=== PATIENT | male | born 1955 | race Caucasian/White ===

== ENCOUNTER → 2019-12-19 | Day surgery (SDC) | payer MEDICARE, OTHER ==
[2019-12-15 12:40] LABS: BASOPHILS % 0.5 % (0.0-1.0); EOSINOPHILS # (AUTO) 0.1 (0.0-0.4); EOSINOPHILS % 1.6 % (0.0-6.0); HEMATOCRIT 45.9 % (38.2-49.6); HEMOGLOBIN 15.9 g/dL (14.0-18.0); LYMPHOCYTES # (AUTO) 2.4 (1.0-3.2); LYMPHOCYTES % 32.3 % (18.0-39.1); MEAN CORPUSCULAR HEMOGLOBIN 32.3 pg (28-32); MEAN CORPUSCULAR HGB CONC 34.6 g/dL (31-35); MEAN CORPUSCULAR VOLUME 93.1 fL (81-99); MONOCYTES # (AUTO) 0.9 (0.2-0.8); MONOCYTES % 11.5 % (4.4-11.3); NEUTROPHILS % 53.4 % (38.7-80.0); PLATELET COUNT 175 x10e3/uL (140-360); RED BLOOD COUNT 4.93 x10e6/uL (4.3-5.7); RED CELL DISTRIBUTION WIDTH 13.5 % (11.7-14.4)
[2019-12-15 12:59] LABS: ALANINE AMINOTRANSFERASE 92 IU/L (0-55); ALBUMIN 4.5 g/dL (3.5-5.0); ALBUMIN/GLOBULIN RATIO 1.3 (0.8-2.0); ALKALINE PHOSPHATASE 74 IU/L (40-150); ANION GAP 15.4 mmol/L (8-16); BLOOD UREA NITROGEN 16 mg/dL (7-26); BUN/CREATININE RATIO 15 (6-25); CALCIUM 9.9 mg/dL (8.4-10.2); CARBON DIOXIDE 23 mmol/L (22-29); CHLORIDE 104 mmol/L (98-107); CREATININE, SERUM 1.08 mg/dL (0.72-1.25); EST GLOMERULAR FILTRATION RATE > 60 ML/MIN (60-); GLUCOSE 114 mg/dL (74-118); POTASSIUM 4.4 mmol/L (3.5-5.1); SODIUM 138 mmol/L (136-145)
--- NOTE | 2019-12-15 13:56 | Diagnostic Imaging Report ---
EXAMINATION: CHEST 2 VIEWS INDICATION: Pre-operative COMPARISON: None FINDINGS: LINES/TUBES:None LUNGS:The lungs are well-inflated. No focal consolidation or pulmonary edema. PLEURA:No pleural effusion or pneumothorax. MEDIASTINUM:The cardiomediastinal silhouette appears normal in size and shape. BONES/SOFT TISSUES:No acute osseous injury. ABDOMEN:No free air under the diaphragm. Prior T12 vertebral augmentation. IMPRESSION: No focal pneumonia or pulmonary edema. Signed by: Carrie Massey MD on 12/15/2019 1:53 PM
[~2019-12-19] MED LIST: BUPIVACAINE 0.25% 30ML SDV INJ ONE; CEFAZOLIN SOD 1 GM VIAL ONE; EPHEDRINE SULFATE INJ 50 MG/ML VIAL ONE; FENTANYL CITRATE/PF 100MCG/2 ML INJ ONE; HYDROCODON-ACE1 EAC9 PO; LIDOCAINE 1% W/EPINEPHRINE 20 ML VIAL ONE; LIDOCAINE HCL 2% LOCAL INJ 5 ML SDV VIAL INJ ONE; LISINOPRIL20 MG PO; MIDAZOLAM HCL 2 MG/2 ML VIAL ONE; ONDANSETRON HCL INJ 2MG/ML 2ML 2 MG/ML VIAL ONE; PROPOFOL IV EMULSION 10 MG/ML 20 ML VIAL ONE; SEVOFLURANE INHAL SOLN 250 ML PEN BTL ONE
--- NOTE | 2019-12-19 07:15 | NUR ---
SPIRITUAL CARE - Pre-Surgery Assessment: Pt in bed. Pt's friend at bedside. Pt reported supportive attention from family and friends. Intervention: Back Roller provided pastoral presence, hospitality, and sympathetic listening. Acquainted pt with availability of chicken fancier while hospitalized. Outcome: Pt expressed appreciation for visit. No need for follow up indicated at this time. MANJIT Rudolph Spiritual Care Department O: [phone]
[2019-12-19 10:50] VITALS: BP 118/78
--- NOTE | 2019-12-19 10:53 | Operative Report ---
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 OPERATION PERFORMED: Wide excision of squamous cell cancers of the anterior chest wall and left shoulder x4 with multiple layer closure. ANESTHESIA: General. COMPLICATIONS: None. ESTIMATED BLOOD LOSS: Minimal. DESCRIPTION OF PROCEDURE: With the patient lying in bed in the supine position under good general anesthesia, the anterior chest and left shoulder were prepped with Hibiclens solution and draped in the usual manner. All 4 lesions were infiltrated with 0.25% Marcaine and 1% xylocaine with epinephrine mixed in equal parts. Wide excisions were done to make sure that we included all of the lesions. The largest of which was about 3 cm in size. The smallest of which was about 1 cm in size. All were widely resected down through the subcutaneous tissue down to the fascia, and removed and sent for pathological examination. Hemostasis was ascertained. Flaps were then developed in all directions and the fascia and subcutaneous tissue was approximated with interrupted sutures of 3-0 Vicryl and the skin was closed with interrupted vertical mattress sutures of 3-0 nylon. A dressing was applied. The sponge, lap, and needle count was correct. The patient tolerated the procedure well and returned to the recovery room in stable condition. Alex Liu MD JLR/MODL /[id number]
== END | disposition home or self-care (01) ==
LOC: OR 06:10
PROVIDERS: ATTEND Surgery
DX: D09.8 Carcinoma in situ of other specified sites (principal); C44.519 Basal cell carcinoma of skin of other part of trunk; C49.12 Malignant neoplasm of connective and soft tissue of left upper limb, including shoulder; L57.0 Actinic keratosis; G89.29 Other chronic pain; F17.210 Nicotine dependence, cigarettes, uncomplicated; Z01.810 Encounter for preprocedural cardiovascular examination; Z01.812 Encounter for preprocedural laboratory examination; Z01.818 Encounter for other preprocedural examination; Z11.59 Encounter for screening for other viral diseases
CPT/HCPCS: 21557; 23077; 36415; 71046; 80053; 85025; 88305; 88311; 93005; J0690; J2001; J2250; J2405; J2704; J3010; U0002; 88304

== ENCOUNTER → 2020-09-04 | Day surgery (SDC) | payer MEDICARE ==
[~2020-09-04] MED LIST changes: -BUPIVACAINE 0.25% 30ML SDV INJ ONE; -CEFAZOLIN SOD 1 GM VIAL ONE; +CEFAZOLIN SOD 1 GM/NS 50ML 50 ML IV ONE; +DEXAMETHASONE SOD PHOS INJ 4 MG/ML VIAL ONE; +EYE LUBRICANT OPTH OINT 3.5GM TUBE OP ONE; -FENTANYL CITRATE/PF 100MCG/2 ML INJ ONE; -LIDOCAINE 1% W/EPINEPHRINE 20 ML VIAL ONE; +LISINOPRIL10 MG PO; -MIDAZOLAM HCL 2 MG/2 ML VIAL ONE; +MUPIROCIN 2% OINT 22 GM TUBE ONE; +POVIDONE IODINE 0.05% 0.05 % ML PO ONE
[2020-09-04 11:02] VITALS: BP 129/89
== END | disposition home or self-care (01) ==
LOC: OR 06:21
PROVIDERS: ATTEND Plastic Surgery
DX: C44.311 Basal cell carcinoma of skin of nose (principal); M54.9 Dorsalgia, unspecified; I10 Essential (primary) hypertension; F17.210 Nicotine dependence, cigarettes, uncomplicated; Z01.810 Encounter for preprocedural cardiovascular examination
CPT/HCPCS: 14061; 88307; 88331; 93005; J0690; J1100; J2001; J2405; J2704